=== PATIENT | male | born 1960 | race Caucasian/White ===

== ENCOUNTER 2017-04-24 08:00 | Outpatient (CLI) | payer OTHER | END 2017-04-24 08:01 | disposition home or self-care (01) | LOC: BICULT 08:00 | PROVIDERS: ATTEND Internal Medicine Gastroenterology | DX: B18.2 Chronic viral hepatitis C (principal); K74.60 Unspecified cirrhosis of liver; N28.1 Cyst of kidney, acquired | CPT/HCPCS: 76705 ==

== ENCOUNTER 2017-10-17 07:58 | Outpatient (CLI) | payer OTHER | END 2017-10-17 07:59 | disposition home or self-care (01) | LOC: BICULT 07:58 | PROVIDERS: ATTEND Physician Assistant Medical | DX: K74.60 Unspecified cirrhosis of liver (principal); R16.1 Splenomegaly, not elsewhere classified; Z86.19 Personal history of other infectious and parasitic diseases; Z86.010 Personal history of colon polyps | CPT/HCPCS: 76705 ==

== ENCOUNTER 2019-05-20 07:43 | Outpatient (CLI) | payer OTHER ==
--- NOTE | 2019-05-20 08:51 | ULT ---
HEPATIC ULTRASOUND: HISTORY: Cirrhosis. FINDINGS: Real-time imaging of the upper abdomen shows a normal-appearing gallbladder. The common duct is 4 mm . The liver measures 15 cm in length and has a coarse echogenic appearance without focal mass. The spleen is enlarged at 13.2 cm. DOPPLER EVALUATION WITH SPECTRAL ANALYSIS: Normal flow pattern is shown within the liver. The right kidney is partially visualized and appears nonobstructed. It is somewhat obscured by gas. IMPRESSION: 1. Mild splenomegaly. 2. Coarse echotexture to the liver without focal discrete mass. POS: [facility]
== END 2019-05-20 07:44 | disposition home or self-care (01) ==
LOC: BICULT 07:43
PROVIDERS: ATTEND Internal Medicine Gastroenterology
DX: K74.60 Unspecified cirrhosis of liver (principal); R16.1 Splenomegaly, not elsewhere classified; K76.89 Other specified diseases of liver
CPT/HCPCS: 76705

== ENCOUNTER 2020-01-28 08:24 | Outpatient (CLI) | payer OTHER ==
--- NOTE | 2020-01-28 09:28 | ULT ---
HEPATIC ULTRASOUND WITH VASCULAR DUPLEX AND COLOR AND SPECTRAL DOPPLER IMAGING: HISTORY: Cirrhosis. COMPARISON: 05/20/2019. FINDINGS: Coarse heterogeneous liver echogenicity. No evidence for gallstones or ductal dilatation of the comm on bile duct which is up to 0.6 cm in size. Pancreas is obscured. Vascular duplex with color and spectral Doppler imaging demonstrates antegrade hepatic and portal nicholas ous flow. IMPRESSION: Coarse heterogeneous liver echotexture. Splenomegaly. No other acute process. Stable appearance. POS: [facility]
== END 2020-01-28 08:25 | disposition home or self-care (01) ==
LOC: BICULT 08:24
PROVIDERS: ATTEND Internal Medicine Gastroenterology
DX: K74.60 Unspecified cirrhosis of liver (principal); R16.1 Splenomegaly, not elsewhere classified; K76.89 Other specified diseases of liver
CPT/HCPCS: 76705

== ENCOUNTER 2020-09-08 11:02 | Outpatient (CLI) | payer OTHER | END 2020-09-08 11:03 | disposition home or self-care (01) | LOC: BICULT 11:02 | PROVIDERS: ATTEND Internal Medicine Gastroenterology | DX: K74.60 Unspecified cirrhosis of liver (principal); D12.6 Benign neoplasm of colon, unspecified; R16.1 Splenomegaly, not elsewhere classified | CPT/HCPCS: 76705 ==

== ENCOUNTER 2023-01-27 07:58 | Outpatient (CLI) | payer OTHER | END 2023-01-27 07:59 | disposition home or self-care (01) | LOC: BICULT 07:58 | PROVIDERS: ATTEND Internal Medicine Gastroenterology | DX: K74.60 Unspecified cirrhosis of liver (principal) | CPT/HCPCS: 76705 ==

== ENCOUNTER 2023-02-08 07:51 | Emergency (ER) | payer OTHER ==
[2023-02-08 09:19] LABS: #Monocytes 0.5 thou/uL (0.11-0.59); %Basophils 0.2 % (0.0-1.0); %Lymphocytes 5.2 % (21.0-51.0); %Monocytes 2.7 % (0.0-10.0); %Neutrophils 91.5 % (42.0-75.0); Hematocrit 43.6 % (42.0-52.0); Hemoglobin 15.8 g/dL (14.0-18.0); Mean Corpuscular HGB CONC 36.2 g/dL (32.0-36.0); Mean Corpuscular Hemoglobin 32.2 pg (27.0-31.0); Mean Platelet Volume 10.2 fL (7.4-10.4); Platelet Count 253 10x3/uL (130-400); RBC Distribution Width 12.3 % (11.5-14.5); White Blood Cell (WBC) Count 18.6 10x3/uL (4.8-10.8)
[2023-02-08 09:46] LABS: ALT (SGPT) 23 U/L (8-55); AST (SGOT) 17 U/L (5-34); Acetaminophen Less than 10 mcg/mL (10.0-30.0); Albumin 4.5 g/dL (3.4-4.8); Alcohol Less than 10.0 mg/dL (Less than 10); Alkaline Phosphatase 91 U/L (40-110); Anion Gap 19 mmol/L (10-20); BUN (Urea Nitrogen) 18 mg/dL (8.4-25.7); Calc. Creatinine Clearance 0 mL/min (70-130); Calcium 9.6 mg/dL (7.8-10.44); Carbon Dioxide 19 mmol/L (23-31); Chloride 99 mmol/L (98-107); Estimated GFR 43; Globulin 2.7 g/dL (2.4-3.5); Glucose 171 mg/dL (80-115); Potassium 3.9 mmol/L (3.5-5.1); Protein, Total 7.2 g/dL (5.8-8.1); Salicylate Less than 8.0 mg/dL (15.0-30.0); Sodium 133 mmol/L (136-145)
[2023-02-08 09:51] LABS: Troponin I Less than 0.010 ng/mL (< 0.028)
[2023-02-08 10:30] LABS: Amphetamine Not Detected (NotDetected); Barbiturates Screen Not Detected (NotDetected); Benzodiazepine Screen Not Detected (NotDetected); Cocaine Metabolite Screen Not Detected (NotDetected); Methadone Not Detected (NotDetected); Methamphetamine Not Detected (NotDetected); Opiate Screen Not Detected (NotDetected); Oxycodone Screen Not Detected (NotDetected); Phencyclidine (PCP) Not Detected (NotDetected); THC/Cannabinoid Screen Not Detected (NotDetected); Tricyclic Screen Not Detected (NotDetected)
[2023-02-08] MEDS ORDERED: Aspirin Chewable 81 MG TAB ONE (11:23)
== END 2023-02-08 11:29 | disposition home or self-care (01) ==
LOC: ERS 07:51
DX: T51.91XA Toxic effect of unspecified alcohol, accidental (unintentional), initial encounter (principal); F43.20 Adjustment disorder, unspecified; R07.89 Other chest pain; I10 Essential (primary) hypertension
CPT/HCPCS: 36415; 71045; 80053; 80306; 80307; 84443; 84484; 85025; 93005